=== PATIENT | female | born 1995 | race American Indian/Alaskan Native ===

== ENCOUNTER 2018-05-28 19:32 | Emergency (ER) | payer SELFPAY ==
[2018-05-28 19:49] VITALS: RESP 18; O2SAT 100
[2018-05-28] MEDS ORDERED: Sodium Chloride 0.9% 1,000 ML IV STA (20:01)
--- NOTE | 2018-05-28 20:20 | ED PDOC ---
Arrival/HPI - General Chief Complaint: Flu-like Symptoms Time Seen by Provider: 05/28/18 19:53 - History of Present Illness Narrative History of Present Illness (Text): 05/28/18 20:22 22 yr old female w/ no ppmhx p/w diffuse body aches and sore throat. Pt notes body aches and sore throat started yesterday. Pt notes recent sick contact in sister, who has had flu like symptoms. No N/V. Patient notes that she has not taken tylenol and is still able to function well. She denies any chest pain or shortness of breath. No urinary symptoms. LMP was 2 weeks prior, normal. No abdominal pain. No constipation, diarrhea or dark or bloody stool +sore throat No change in phonation No dysphagia No cough No difficulty breathing No headache, or neck stiffness Past Medical History - Provider Review Nursing Documentation Reviewed: Yes - Travel History Have you recently traveled outside [place] w/in the past 3 mons?: No - Infectious Disease Hx of Infectious Diseases: None - Cardiac Hx Cardiac Disorders: No - Psychiatric Hx Substance Use: No - Anesthesia Hx Anesthesia: No Family/Social History - Physician Review Nursing Documentation Reviewed: Yes Family/Social History: No Known Family HX Smoking Status: Former Smoker Hx Alcohol Use: Yes Frequency of alcohol use: Socially Hx Substance Use: No Allergies/Home Meds Allergies/Adverse Reactions: Allergies No Known Allergies Allergy (Verified 05/28/18 19:46) Review of Systems - Review of Systems Constitutional: Fatigue Eyes: Normal ENT: Normal Respiratory: Normal Cardiovascular: Normal Gastrointestinal: Normal Genitourinary Female: Normal Musculoskeletal: Myalgias Skin: Normal Neurological: Normal Endocrine: Normal Physical Exam Vital Signs Reviewed: Yes Vital Signs Temp Pulse Resp BP Pulse Ox 05/28/18 19:45 103.0 F H 121 H 18 133/76 100 Temperature: Febrile Blood Pressure: Normal Pulse: Tachycardic Respiratory Rate: Normal Appearance: Positive for: Well-Appearing, Non-Toxic, Comfortable. No: Ill- Appearing, Unkept, Uncomfortable Pain Distress: None Mental Status: Positive for: Alert and Oriented X 3 - Systems Exam Head: Present: Atraumatic, Normocephalic Pupils: Present: PERRL Extroacular Muscles: Present: EOMI Conjunctiva: Present: Normal Mouth: Present: Moist Mucous Membranes Pharnyx: Present: Normal. No: ERYTHEMA, EXUDATE, TONSILS ENLARGED, Peritonsilar Swelling, Uvular Deviation, Muffled/Hoarse Voice, Strider Neck: Present: Normal Range of Motion. No: Meningeal Signs, MIDLINE TENDERNESS , Paraspinal Tenderness Respiratory/Chest: Present: Clear to Auscultation, Good Air Exchange. No: Respiratory Distress, Accessory Muscle Use, Wheezes Cardiovascular: Present: Normal S1, S2, Tachycardic. No: Murmurs Abdomen: No: Tenderness, Distention, Peritoneal Signs Back: Present: Normal Inspection Upper Extremity: Present: Normal Inspection. No: Cyanosis, Edema Lower Extremity: Present: Normal Inspection. No: Edema Neurological: Present: GCS=15, CN II-XII Intact, Speech Normal Skin: Present: Warm, Dry, Normal Color. No: Rashes Psychiatric: Present: Alert, Oriented x 3, Normal Insight, Normal Concentration Medical Decision Making ED Course and Treatment: 05/28/18 20:36 22 yr old well appearing female p/w diffuse body aches, sore throat, ?Flu. Given well appearance likely viral. No retained FB or rashes noted. No meningeal signs. No signs of respiratory compromise. No dysphagia or odynophagia. No unilateral swelling to neck. Strep throat vs. Influenza vs cold 05/28/18 20:38 +Strep, will rx. 05/28/18 20:51 labs resulted, no leukocytosis fluids hanging, 1st abx here to be given. Will likely d/c home if tolerating, and repeat exam remains stable. 05/28/18 21:11 Reassessed. Pt in NAD, less tachy to 105 after 1/2L NS and remains well appearing, non toxic. Clear for d/c. - Lab Interpretations Lab Results: 05/28/18 20:25 05/28/18 20:25 Lab Results 05/28/18 20:25: Sodium 137, Potassium 3.6, Chloride 100, Carbon Dioxide 26, Anion Gap 14, BUN 6 L, Creatinine 0.8, Est GFR ( Amer) > 60, Est GFR (Non -Af Amer) > 60, Random Glucose 142 H, Calcium 9.2, Total Bilirubin 0.5, AST 25, ALT 16, Alkaline Phosphatase 59, Total Protein 8.0, Albumin 4.3, Globulin 3.7, Albumin/Globulin Ratio 1.1 05/28/18 20:25: WBC 10.2, RBC 4.01, Hgb 11.9 L, Hct 35.4 L, MCV 88.3, MCH 29.7, MCHC 33.6, RDW 12.6, Plt Count 295, MPV 9.2, Gran % 80.8 H, Lymph % (Auto) 13.9 L, [place] % (Auto) 5.1, Eos % (Auto) 0.0 L, Baso % (Auto) 0.2, Gran # 8.21 H, Lymph # (Auto) 1.4, [place] # (Auto) 0.5, Eos # (Auto) 0.0, Baso # (Auto) 0.02 05/28/18 20:17: Influenza Typ A,B (EIA) Negative for flu a/b, Grp A Beta Strep Ag Positive H - Medication Orders Current Medication Orders: Discontinued Medications Acetaminophen (Tylenol 325mg Tab) 650 mg PO STAT STA Stop: 05/28/18 20:01 Last Admin: 05/28/18 20:22 Dose: 650 mg MAR Pain/Vitals Document 05/28/18 20:22 RG (Rec: 05/28/18 20:27 RG [id number]) Pain Reassessment Is This A Pain ReAssessment? Yes Location Pain Location Body Site Generalized Intensity 5 Scale Used Numeric Amoxicillin (Amoxil 250 Mg/5 Ml Susp) 500 mg PO STAT STA PRN Reason: Protocol Stop: 05/28/18 20:40 Sodium Chloride (Sodium Chloride 0.9%) 1,000 mls @ 999 mls/hr IV .Q1H1M STA Stop: 05/28/18 21:01 Last Admin: 05/28/18 20:28 Dose: 999 mls/hr eMAR Start Stop Document 05/28/18 20:28 RG (Rec: 05/28/18 20:28 RG [id number]) Intravenous Solution Start Date 05/28/18 Start Time 20:28 Disposition/Present on Arrival - Present on Arrival Any Indicators Present on Arrival: No History of DVT/PE: No History of Uncontrolled Diabetes: No Urinary Catheter: No History of Decub. Ulcer: No History Surgical Site Infection Following: None - Disposition Have Diagnosis and Disposition been Completed?: Yes Diagnosis: Strep throat Disposition Time: 20:49 Patient Problems: Current Active Problems Problem Status Onset Strep throat Acute Condition: GOOD Discharge Instructions (ExitCare): Strep Throat (DC) Additional Instructions: SHREYAS ENCARNACION, thank you for letting us take care of you today. Your provider was Marquise Leblanc and you were treated for BODY ACHE. The emergency medical care you received today was directed at your acute symptoms. If you were prescribed any medication, please fill it and take as directed. It may take several days for your symptoms to resolve. Return to the Emergency Department if your symptoms worsen, do not improve, or if you have any other problems. Please contact your doctor or call one of the physicians/clinics you have been referred to that are listed on the Patient Visit Information form that is included in your discharge packet. Bring any paperwork you were given at discharge with you along with any medications you are taking to your follow up visit. Our treatment cannot replace ongoing medical care by a primary care provider outside of the emergency department. Thank you for allowing the [facility] team to be part of your care today. If you had an X-Ray or CT scan: A Radiologist will review the ED reading if any change in treatment is needed we will contact you. If you had a blood, urine, or wound culture: It will take several days for the results, if any change in treatment is needed we will contact you. If you had an STI test: It will take 48 hours for the results. Please call after 1 week if you have not heard back. Prescriptions: Amoxicillin [Trimox] 500 mg PO BID 10 Days #200 ml Referrals: Deloris Cannon MD [Medical Doctor] - Follow up with primary Forms: [employer] ([place]ian)
[2018-05-28 20:37] LABS: INFLUENZA A B NEGATIVE FOR FLU A/B (NEGATIVE)
[2018-05-28] MEDS ORDERED: Amoxicillin 250 mg/5 ml Susp (150 ml) PO STA (20:39)
[2018-05-28 20:46] LABS: BASO # 0.02 K/mm3 (0.0-2.0); BASO % 0.2 % (0.0-3.0); GRAN # 8.21 (1.4-6.5); GRAN % 80.8 % (50.0-68.0); HEMOGLOBIN 11.9 g/dL (12.0-16.0); LYMPH # 1.4 (1.2-3.4); LYMPH % 13.9 % (22.0-35.0); MEAN CELL VOLUME 88.3 fl (80.0-105.0); MEAN CORPUSCULAR HEMOGLOBIN 29.7 pg (25.0-35.0); MEAN CORPUSCULAR HGB CONC 33.6 g/dl (31.0-37.0); MEAN PLATELET VOLUME 9.2 fl (7.0-11.0); MONO # 0.5 (0.1-0.6); MONO % 5.1 % (1.0-6.0); RBC 4.01 10^6/uL (3.5-6.1); RED CELL DISTRIBUTION WIDTH 12.6 % (11.5-14.5); WHITE BLOOD COUNT 10.2 10^3/ul (4.5-11.0)
[2018-05-28 20:47] LABS: ALB/GLOB RATIO 1.1 (1.1-1.8); ALBUMIN 4.3 g/dL (3.0-4.8); ALT/SGPT 16 U/L (7-56); AST/SGOT 25 U/L (14-36); BLOOD UREA NITROGEN 6 mg/dL (7-21); CALCIUM 9.2 mg/dL (8.4-10.5); GFR NON-AFRICAN AMERICAN > 60
[2018-05-28 21:23] VITALS: BP 130/72; PULSE 98; TEMP 100
== END 2018-05-28 21:30 | disposition home or self-care (01) ==
LOC: ED 19:32
DX: J02.0 Streptococcal pharyngitis (principal); Z87.891 Personal history of nicotine dependence
CPT/HCPCS: 80053; 85025; 87430; 87804; 99284; J7030

== ENCOUNTER 2018-07-27 19:37 | Emergency (ER) | payer SELFPAY ==
[2018-07-27 20:20] VITALS: BMI 21.5
[2018-07-27 20:22] VITALS: PULSE 75; RESP 18; TEMP 98.2
--- NOTE | 2018-07-27 20:46 | ED PDOC ---
Arrival/HPI - General Chief Complaint: Female Genitourinary Time Seen by Provider: 07/27/18 20:30 Historian: Patient - History of Present Illness Narrative History of Present Illness (Text): 23 year old female, with no significant past medical history presents to the emergency department with vaginal discomfort, for a 2-3 days. Patient states she has been feeling an itchy sensation in her vagina. Patient reports dysuria & urinary frequency. She informs of a consistent burning sensation in her vagina. Patient also informs of a new sexual partner who she has been seeing for 2 weeks, and has had at least one instance of unprotected sex with. She denies any vaginal discharge, vaginal bleeding, fevers, nausea, vomiting, or any other complaints. Time/Duration: < week Symptom Onset: Gradual Symptom Course: Unchanged Past Medical History - Provider Review Nursing Documentation Reviewed: Yes - Travel History Have you recently traveled outside [place] w/in the past 3 mons?: No - Infectious Disease Hx of Infectious Diseases: None - Cardiac Hx Cardiac Disorders: No - Pulmonary Hx Respiratory Disorders: No - Neurological Hx Neurological Disorder: No - HEENT Hx HEENT Disorder: No - Renal Hx Renal Disorder: No - Endocrine/Metabolic Hx Endocrine Disorders: No - Hematological/Oncological Hx Blood Disorders: No - Integumentary Hx Dermatological Disorder: No - Musculoskeletal/Rheumatological Hx Musculoskeletal Disorders: No - Gastrointestinal Hx Gastrointestinal Disorders: No - Genitourinary/Gynecological Hx Genitourinary Disorders: No - Psychiatric Hx Psychophysiologic Disorder: No Hx Substance Use: No - Anesthesia Hx Anesthesia: No Family/Social History - Physician Review Nursing Documentation Reviewed: Yes Family/Social History: No Known Family HX Smoking Status: Former Smoker Hx Alcohol Use: Yes Hx Substance Use: No Allergies/Home Meds Allergies/Adverse Reactions: Allergies No Known Allergies Allergy (Verified 07/27/18 20:19) Review of Systems - Physician Review All systems were reviewed & negative as marked: Yes - Review of Systems Constitutional: absent: Fevers Gastrointestinal: absent: Nausea, Vomiting Genitourinary Female: Dysuria, Frequency. absent: Vaginal Bleeding, Vaginal Discharge Physical Exam Vital Signs Reviewed: Yes Vital Signs Temp Pulse Resp BP Pulse Ox 07/27/18 20:20 98.2 F 75 18 123/72 99 Temperature: Afebrile Blood Pressure: Normal Pulse: Regular Respiratory Rate: Normal Appearance: Positive for: Well-Appearing, Non-Toxic, Comfortable Pain Distress: None Mental Status: Positive for: Alert and Oriented X 3 - Systems Exam Head: Present: Atraumatic, Normocephalic Pupils: Present: PERRL Extroacular Muscles: Present: EOMI Conjunctiva: Present: Normal Mouth: Present: Moist Mucous Membranes Neck: Present: Normal Range of Motion Respiratory/Chest: Present: Clear to Auscultation, Good Air Exchange. No: Respiratory Distress, Accessory Muscle Use Cardiovascular: Present: Regular Rate and Rhythm, Normal S1, S2. No: Murmurs Abdomen: No: Tenderness, Distention, Peritoneal Signs Genitourinary/Pelvic Exam: Present: Adenexal Tenderness (right sided), Other (no vulvar lesions; milky-greenish discharge within vaginal vault; no CMT). No: Vaginal Discharge, Vaginal Bleeding Back: Present: Normal Inspection Upper Extremity: Present: Normal Inspection. No: Cyanosis, Edema Lower Extremity: Present: Normal Inspection. No: Edema Neurological: Present: Speech Normal Skin: Present: Warm, Dry, Normal Color. No: Rashes Psychiatric: Present: Alert, Oriented x 3, Normal Insight, Normal Concentration Medical Decision Making ED Course and Treatment: 07/27/18 20:48 Impression: 23 year old female presents with vaginal discomfort. Plan: -- Urine cultures -- Labs -- Zithromax -- Rocephin -- Reassess and disposition Prior Visits: Notes and results from previous visits were reviewed. Progress Notes: 07/27/18 21:19 Patient admits her boyfriend is positive for Gonorrhea. Will preemptively treat patient for gonorrhea and chlamydia. 07/31/18 22:00 Discussion regarding safe sex practices with patient. She states she will follow up in clinic. She is stable for discharge. - Scribe Statement The provider has reviewed the documentation as recorded by the Swapnil Nazario Provider Scribe Attestation: All medical record entries made by the Indiraibchintan were at my direction and personally dictated by me. I have reviewed the chart and agree that the record accurately reflects my personal performance of the history, physical exam, medical decision making, and the department course for this patient. I have also personally directed, reviewed, and agree with the discharge instructions and disposition. Disposition/Present on Arrival - Present on Arrival Any Indicators Present on Arrival: No History of DVT/PE: No History of Uncontrolled Diabetes: No Urinary Catheter: No History of Decub. Ulcer: No History Surgical Site Infection Following: None - Disposition Have Diagnosis and Disposition been Completed?: Yes Diagnosis: STI (sexually transmitted infection), UTI (urinary tract infection), Gonorrhea Disposition: HOME/ ROUTINE Disposition Time: 22:00 Patient Plan: Discharge Condition: STABLE Discharge Instructions (ExitCare): Urinary Tract Infection, Adult (DC), Sexually-Transmitted Diseases (DC) Additional Instructions: All medical record entries made by the Scribe were at my direction and personally dictated by me. I have reviewed the chart and agree that the record accurately reflects my personal performance of the history, physical exam, medical decision making, and the department course for this patient. I have also personally directed, reviewed, and agree with the discharge instructions and dis position. Prescriptions: Cephalexin [cephalexin] 500 mg PO BID #10 cap Referrals: [facility] at [facility] [place] [Outside] - Follow up with primary Deloris Cannon MD [Medical Doctor] - Follow up with primary Forms: [employer] ([place] Citizen)
[2018-07-27 21:13] LABS: URINE BILIRUBIN NEGATIVE (NEGATIVE); URINE BLOOD NEGATIVE (NEGATIVE); URINE GLUCOSE (UA) NEGATIVE (NEGATIVE); URINE LEUKOCYTE ESTERASE LARGE Leu/uL (NEGATIVE); URINE PROTEIN 30 mg/dL (<30 mg/dL); URINE UROBILINOGEN 0.2 E.U./dL (<1 E.U./dL)
[2018-07-27 21:14] LABS: URINE APPEARANCE SLIGHT-CLOUDY (CLEAR); URINE COLOR YELLOW (YELLOW)
[2018-07-27 21:17] LABS: URINE BACTERIA MANY (NEG); URINE RBC 0 - 2 /hpf (0-2)
[2018-07-27] MEDS ORDERED: cefTRIAXone (Rocephin) 250 mg Inj IM STA (21:17)
[2018-07-28 00:40] VITALS: BP 121/75; O2SAT 100
== END 2018-07-27 21:49 | disposition home or self-care (01) ==
LOC: ED 19:37
DX: N39.0 Urinary tract infection, site not specified (principal); A54.9 Gonococcal infection, unspecified